=== PATIENT | male | born 1995 | race Caucasian/White ===

== ENCOUNTER 2022-05-10 22:19 | Emergency (ER) | payer OTHER ==
[2022-05-10 22:48] VITALS: BP 120/75
--- NOTE | 2022-05-11 00:41 | ED Physician Documentation ---
PD HPI BACK PAIN - Stated complaint Stated Complaint: BACK PX,NAUSEA - Chief complaint Chief Complaint: Back Pain - History obtained from History obtained from: Patient - History of Present Illness Timing - onset: How many days ago (2) Timing - details: Abrupt onset Pain level now: 8 Location: Lower, Left Quality: Pain, Spasm Associated symptoms: No: Fever, Weakness, Numbness, Incontinent of urine, Unable to urinate, Hematuria, Incontinent of stool Improves with: Rest Worsened by: Movement Similar symptoms before: Has not had sx before Recently seen: Clinic - Additional information Additional information: HPI from patient. Patient c/o left low back pain radiating to left buttock, sudden onset 2 days ago, noticed when he got out of bed and was very mild at the time. He initially denies injury, but with further thought, he does recall slipping and falling on icy/snowy surface 3 days ago but did not have any back pain associated with this (he did have mild neck pain, but this has resolved). Since onset, the pain has been constant and steadily worsening in intensity, becoming associated with muscle spasm. He was seen in clinic [place] [place] and was prescribed flexeril but he has had little improvement with this medication. Denies h/o similar symptoms. Denies weakness, numbness, loss of bowel/bladder continence. Has also been taking tylenol with the flexeril. THe pain is distinctly worse with movement involving mid/lower back, partially relieved with rest. Review of Systems Constitutional: denies: Fever GI: denies: Abdominal Pain, Nausea, Vomiting : denies: Unable to Void, Incontinent Skin: denies: Rash Musculoskeletal: reports: Back pain. denies: Neck pain, Extremity pain, Joint pain, Extremity swelling, Joint swelling Neurologic: denies: Generalized weakness, Focal weakness, Numbness PD PAST MEDICAL HISTORY - Past Medical History Past Medical History: No - Present Medications Home Medications: Ambulatory Orders Medication Instructions Recorded Confirmed Cyclobenzaprine [Flexeril] 10 mg PO TID 05/10/22 05/10/22 HYDROcod/ACETAM 5/325 [[place] 5/325] 1 - 2 tablet PO Q6H PRN #14 tablet 05/11/22 Lidocaine Patch 5% [Lidoderm Patch] 1 each TOP DAILY #10 patch 05/11/22 diazePAM [Valium] 5 mg PO TID PRN #15 tablet 05/11/22 - Allergies Allergies/Adverse Reactions: Allergies Allergy/AdvReac Type Severity Reaction Status Date / Time No Known Drug Allergies Allergy Verified 05/10/22 22:40 PD ED PE NORMAL - Abdomen Abdomen: Soft, Non tender - Back Back: No CVA TTP, No spinal TTP - Derm Derm: Normal color, Warm and dry, No rash - Neuro Neuro: No motor deficit (5/5 bilateral dorsi/plantarflexion), No sensory deficit (LTS BLE) Results - Vitals Vitals: Oxygen O2 Source Room air - Labs Labs: Laboratory Tests 05/11/22 00:37 Urine Color YELLOW Urine Clarity CLEAR Urine pH 6.0 Ur Specific [place] 1.010 Urine Protein NEGATIVE Urine Glucose (UA) NEGATIVE Urine Ketones NEGATIVE Urine Occult Blood TRACE-INTA Urine Nitrite NEGATIVE Urine Bilirubin NEGATIVE Urine Urobilinogen 0.2 (NORMAL) Ur Leukocyte Esterase NEGATIVE Ur Microscopic Review NOT INDICATED Urine Culture Comments NOT INDICATED - Rads (name of study) lumbar xrays Radiology: Prelim report reviewed, See rad report PD Medical Decision Making - ED course Complexity details: reviewed results, re-evaluated patient, considered differential, d/w patient ED course: lumbar xrays show mild lumbar facet arthropathy of mid/lower lumbar spine. Also noted is early mild degenerative changes of both hips. I reviewed these results with patient. These findings are somewhat atypical for his age, and might account for his symptoms, but further study might be helpful should his pain persist or worsen despite rest and prescribed medications for short-term symptom relief. No elements of HPI nor exam to suggest acute spinal cord impingement such as cauda equina (no bowel/bladder incontinence, saddle anesthesia). He is provided take-home vicodin and rx for both vicodin and valium, with valium to be used for skeletal muscle relaxer in place of the flexeril. return precautions reviewed. Departure - Departure Disposition: 01 Home, Self Care Clinical Impression: Back pain Condition: Good Instructions: NARCOTIC, Oral, ED Neck Back Pain General Follow-Up: MAYNOR ESTRELLA DO [Primary Care Provider] - Prescriptions: Lidocaine Patch 5% [Lidoderm Patch] 1 each TOP DAILY #10 patch HYDROcod/ACETAM 5/325 [[place] 5/325] 1 - 2 tablet PO Q6H PRN #14 tablet PRN Reason: Pain diazePAM [Valium] 5 mg PO TID PRN #15 tablet PRN Reason: Spasms Comments: As we discussed, the x-rays show a mild abnormality of your lower lumbar vertebra which is called facet arthropathy. This is not a specific finding, but could account for the discomfort you are having. You should follow-up with your primary care provider for reevaluation, further testing might be indicated if the pain persists. I have electronically submitted prescriptions to [facility] pharmacy in [place]. The prescriptions are for Vicodin (strong, narcotic pain medication), diazepam (a stronger skeletal muscle relaxant then the cyclobenzaprine that you are already taking), and Lidoderm patches. Take either the cyclobenzaprine or the diazepam; do not take both, as these both are muscle relaxants and you will likely get more side effect than increase effect if you were to take both. You can take either one of them with the Vicodin. I am prescribing a short course of narcotic pain medication for you. These are potentially dangerous and addictive medications that should be used carefully. These medications may constipate you. Take an lyzr-oic-vxunqjr stool softener (docusate) twice daily with plenty of water while taking these medications. If you go 24 hours without a bowel movement, take atyx-qxl-tccyszt miralax, per package instructions. Do not drink or drive while taking these medications. If you received narcotic or sedating medications while in the emergency department, do not drive for 24 hours. Store this medication in a safe, secure place and out of reach of children. It is a violation of federal law to give or sell this medication to another person or to use in a manner other than prescribed. The ED will not refill narcotic prescriptions, including prescriptions lost or stolen. To dispose of unwanted medications: 1. [facility] at [address] [facility] in [place] has a medication drop box. They accept prescription medications (in pill form) Friday through Friday 9:00 a.m. to 5:00 p.m. 2. The [facility] [employer] accepts prescription medications (in pill form only) for disposal year round. Call for more information. 3. Contact the [facility] for the next [facility] prescription drug collection event. , [phone], or [phone]; Discharge Date/Time: 05/11/22 02:50
[2022-05-11 01:16] LABS: BILIRUBIN,URINE NEGATIVE (NEGATIVE); GLUCOSE, URINE (UA) NEGATIVE (NEGATIVE); KETONES,URINE (UA) NEGATIVE (NEGATIVE); LEUKOCYTE ESTERASE, URINE NEGATIVE (NEGATIVE); NITRITE,URINE NEGATIVE (NEGATIVE); OCCULT BLOOD,URINE TRACE-INTA (NEGATIVE); PROTEIN,URINE NEGATIVE (NEGATIVE); UROBILINOGEN,URINE 0.2 (NORMAL) E.U./dL (NORMAL)
--- NOTE | 2022-05-11 01:30 | XRAY Report ---
PROCEDURE: Lumbar Spine 2 View INDICATIONS: left low back and midline lumbar pain TECHNIQUE: 2 views of the lumbar spine were acquired. COMPARISON: None. FINDINGS: Bones: 5 wqa-lji-fxbfguc vertebrae are present. There is normal bony alignment. No vertebral body compression fractures. No suspicious bony lesions. The disc heights are relatively well-preserved. Mild lower lumbar spine facet arthropathy can be seen. Mild degenerative change can be seen of the visualized hips. Soft tissues: Overlying bowel gas pattern is normal. No suspicious soft tissue calcifications. IMPRESSION: No acute plain film abnormality can be seen. Lower lumbar spine facet arthropathy can be seen. If it would be helpful for clinical management decision making, please consider a dedicated, schedule d lumbar MRI for further evaluation (assuming that there is no contraindication). Premature degenerative change of the hips noted. Reviewed by: Trent Salguero MD on 05/11/2022 12:28 AM [facility] Approved by: Trent Salguero MD on 05/11/2022 12:28 AM [facility] Station ID: [id number]
[2022-05-11 02:11] LABS: CLARITY,URINE CLEAR (CLEAR)
[2022-05-11] MEDS ORDERED: HYDROcod/ACET 5/325 Prepack 4 PO STA (02:38)
[2022-05-11] MEDS ORDERED: LIDOCAINE PATCH 5% TOP STA (02:38)
== END 2022-05-11 02:50 | disposition home or self-care (01) ==
LOC: ED 22:19
DX: M47.816 Spondylosis without myelopathy or radiculopathy, lumbar region (principal); M16.0 Bilateral primary osteoarthritis of hip
CPT/HCPCS: 72100; 81003; 99282; 99284; A9270; 81001; 87086

== ENCOUNTER 2022-10-03 12:23 | Emergency (ER) | payer OTHER ==
--- NOTE | 2022-10-03 12:43 | ED Physician Documentation ---
PD HPI BACK PAIN - Stated complaint Stated Complaint: BACK PX - Chief complaint Chief Complaint: Back Pain - History obtained from History obtained from: Patient - History of Present Illness Location: Lower, Right Quality: Pain, Spasm Associated symptoms: No: Fever, Weakness, Numbness, Incontinent of urine, Unable to urinate, Hematuria, Incontinent of stool, Other Improves with: Meds Worsened by: Movement, Lifting, Twisting, Palpation Contributing factors: Lifting, Twisting. No: Trauma, IVDA Similar symptoms before: Work up / diagnostics Recently seen: Clinic - Additional information Additional information: 26-year-old male with a history of left lower Back pain in the past, presents now with severe right lower back pain. Patient states that he had gotten somewhat out of shape andStarted working out again with the , and had been doing well with that, had done some weightlifting Yesterday and had no injury at that time but later bent over and had a sudden pain and pop in the right lower back. He did not think too much of it, planned on just waiting it out in avoiding particular movements however today the pain radiated into the right groin and into the right testicle. He was concerned that he may have had a hernia though he states he did not palpate anything or noticed any bulging or swelling. He has no urinary symptoms including dysuria urgency or frequency, no incontinence or retention. He has no saddle anesthesia, no lower extremity weakness or numbness, and has not had a fever. He has no history of IV drug use. He did not injure attempt any treatment at home but [facility] advised him to come here "for an MRI" because of the radiation into the groin apparently. Review of Systems Constitutional: reports: Reviewed and negative Cardiac: reports: Reviewed and negative Respiratory: reports: Reviewed and negative GI: reports: Reviewed and negative : reports: Other (right groin pain, no other sx) Skin: reports: Reviewed and negative Musculoskeletal: reports: Reviewed and negative Neurologic: reports: Reviewed and negative Psychiatric: reports: Reviewed and negative Endocrine: reports: Reviewed and negative PD PAST MEDICAL HISTORY - Present Medications Home Medications: Ambulatory Orders Medication Instructions Recorded Confirmed Cyclobenzaprine [Flexeril] 10 mg PO TID 05/10/22 05/10/22 HYDROcod/ACETAM 5/325 [[place] 5/325] 1 - 2 tablet PO Q6H PRN #14 tablet 05/11/22 Lidocaine Patch 5% [Lidoderm Patch] 1 each TOP DAILY #10 patch 05/11/22 diazePAM [Valium] 5 mg PO TID PRN #15 tablet 05/11/22 Cyclobenzaprine [Flexeril] 10 mg PO TID PRN #20 tablet 10/03/22 Ibuprofen [Motrin] 800 mg PO Q8H PRN #30 tablet 10/03/22 Oxycodone HCl/Acetaminophen 1 - 2 each PO Q6H PRN #14 tablet 10/03/22 [Percocet 5-325 mg Tablet] - Allergies Allergies/Adverse Reactions: Allergies Allergy/AdvReac Type Severity Reaction Status Date / Time No Known Drug Allergies Allergy Verified 10/03/22 12:38 PD ED PE NORMAL - Vitals Vital signs reviewed: Yes - General General: Alert and oriented X 3, No acute distress, Well developed/nourished - HEENT HEENT: Atraumatic, Pharynx benign - Cardiac Cardiac: RRR, No murmur, No gallop, No rub - Respiratory Respiratory: No respiratory distress, Clear bilaterally - Abdomen Abdomen: Normal bowel sounds, Soft, Non tender, Non distended - Male Male : Other (Normal, no swelling or obvious hernia) - Back Back: No CVA TTP, No spinal TTP, Other (right paravertebral lumbar ttp) - Derm Derm: Normal color, Warm and dry, No rash - Extremities Extremities: No deformity, No tenderness to palpate, Normal ROM s pain, No edema, No calf tenderness / cord, Other (ambulatory, 5/5 lower ext strength, no foot drop, nl sensation) - Neuro Neuro: Alert and oriented X 3 Eye Opening: Spontaneous Motor: Obeys Commands Verbal: Oriented GCS Score: 15 - Psych Psych: Normal mood, Normal affect Results - Vitals Vitals: Vital Signs - 24 hr 10/03/22 10/03/22 12:33 14:06 Temperature 36.3 C L Heart Rate 82 72 Respiratory 16 16 Rate Blood Pressure 133/88 H 140/80 H O2 Saturation 97 98 Oxygen O2 Source Room air - Rads (name of study) No standard instances Relevant Findings:: Final report received PD Medical Decision Making - ED course Complexity details: reviewed results, re-evaluated patient, considered differential, d/w patient ED course: 26-year-old male presented with right lower back pain that occurred after bending over yesterday. He is well-appearing on physical exam, has normal sensation and range of motion of the lower extremities, he has no saddle anesthesia, no fever. I have a very low suspicion for cauda equina or epidural abscess and therefore do not see indication for an emergent MRI at this point in time. I did obtain a right groin ultrasound given patient's radiating pain into the groin and report of concern for hernia. This was negative. He had no other urinary symptoms to suggest infection, And I do not suspect kidney stone as patient symptoms occurred after lifting and then bending over. Symptoms are reproducible with palpation of the right lower paravertebral muscles in this is consistent with a muscle strain. I advised patient on supportive measures and he had significant relief with administration of 30 mg of IM Toradol. We will discharge the patient home with NSAIDs, Flexeril and a short course of Percocet to use only as needed if pain not relieved by other measures. Patient states understanding and he was advised to follow-up with his PCP if no improvement in the next 2 to 3 weeks at which time they may consider an MRI and we also discussed return precautions in detail. Departure - Departure Disposition: 01 Home, Self Care Clinical Impression: Acute low back pain Qualifiers: Back pain laterality: right Sciatica presence: without sciatica Qualified Code(s): M54.50 - Low back pain, unspecified Condition: Good Instructions: ED Back Care Tips, ED Low Back Pain Injury Prescriptions: Cyclobenzaprine [Flexeril] 10 mg PO TID PRN #20 tablet PRN Reason: Spasms Ibuprofen [Motrin] 800 mg PO Q8H PRN #30 tablet PRN Reason: PAIN &/OR FEVER Oxycodone HCl/Acetaminophen [Percocet 5-325 mg Tablet] 1 - 2 each PO Q6H PRN #14 tablet PRN Reason: pain Comments: Ultrasound did not reveal any sign of hernia. You do have a likely strained lower back muscle and I recommend that you rest, avoid twisting, bending and lifting until symptoms improve but can be between 1 and 4 weeks. If there is no improvement after the next several weeks, then an outpatient MRI may be indicated. At this time however you do not have indication for an emergent MRI. Please use the pain medication as needed, starting with anti-inflammatory, the ibuprofen, and using the narcotic only if needed. I have also prescribed a muscle relaxer called Flexeril, which can cause you to be sedated so should be used carefully. I am prescribing a short course of narcotic pain medication for you. These are potentially dangerous and addictive medications that should be used carefully. These medications may constipate you. Take an jyix-jur-mrjyvox stool softener (docusate) twice daily with plenty of water while taking these medications. If you go 24 hours without a bowel movement, take nnra-avv-umznarx miralax, per package instructions. Do not drink or drive while taking these medications. If you received narcotic or sedating medications while in the emergency department, do not drive for 24 hours. Store this medication in a safe, secure place and out of reach of children. It is a violation of federal law to give or sell this medication to another person or to use in a manner other than prescribed. The ED will not refill narcotic prescriptions, including prescriptions lost or stolen. To dispose of unwanted medications: 1. [facility] at [address] [place] [address] in [place] has a medication drop box. They accept prescription medications (in pill form) Friday through Friday 9:00 a.m. to 5:00 p.m. 2. The [facility] [employer] accepts prescription medications (in pill form only) for disposal year round. Call for more information. 3. Contact the [facility] for the next [facility] sponsored prescription drug collection event. , [phone], or [phone]; Note that many narcotic pain relievers also contain Tylenol/acetaminophen. Please ensure that your total dose of acetaminophen from all sources does not exceed 3 g (3000 mg) per day. Forms: Activity restrictions Discharge Date/Time: 10/03/22 14:07
[2022-10-03] MEDS ORDERED: KETOROLAC 60 MG/2 ML VIAL IM STA (13:14)
[2022-10-03 14:07] VITALS: BP 140/80
--- NOTE | 2022-10-03 15:13 | Ultrasound Report ---
PROCEDURE: Pelvic Male INDICATIONS: concern for right inguinal hernia TECHNIQUE: Ott scale images of the right inguinal region obtained. COMPARISON: None. FINDINGS: In the area of pain, there is no visible fascial defect, solid mass or cyst. No hernia or during Vals palma maneuver. IMPRESSION: No sonographic evidence of right inguinal hernia. Reviewed by: Faby Macias MD on 10/03/2022 3:12 PM PDT Approved by: Faby Macias MD on 10/03/2022 3:12 PM PDT Station ID: [id number]
== END 2022-10-03 14:07 | disposition home or self-care (01) ==
LOC: ED 12:23
DX: M54.50 Low back pain, unspecified (principal)
CPT/HCPCS: 96372; 99283; 99284

== ENCOUNTER 2022-11-21 07:06 | Emergency (ER) | payer OTHER ==
--- NOTE | 2022-11-21 08:08 | ED Physician Documentation ---
PD HPI BACK PAIN - Stated complaint Stated Complaint: BACK PX,RT LEG NUMBNESS - Chief complaint Chief Complaint: Back Pain - History obtained from History obtained from: Patient - History of Present Illness Timing - onset: Yesterday Timing - duration: Days (1-2) Timing - details: Gradual onset, Still present Location: Lower, Right Quality: Pain, Spasm Associated symptoms: Numbness (brief intermittent to right thigh, not consistent.). No: Fever, Weakness, Incontinent of urine Worsened by: Movement, Twisting Contributing factors: Lifting, Twisting (He was helping move some furniture and objects with a friend couple of days ago. No abrupt pain or problems then. Later next morning had stiffness and pain and has increased into today.) Similar symptoms before: No diagnosis (He has had 2 or 3 discrete episodes similar over the past year. Each has lasted a few days to week and improved. No interval restriction on movement nor ongoing pain.) Review of Systems Constitutional: denies: Fever, Chills GI: denies: Abdominal Pain : denies: Incontinent Skin: denies: Rash, Lesions Musculoskeletal: reports: Back pain. denies: Neck pain Neurologic: denies: Focal weakness PD PAST MEDICAL HISTORY - Past Medical History Cardiovascular: None Respiratory: None Neuro: None Endocrine/Autoimmune: None - Present Medications Home Medications: Ambulatory Orders Medication Instructions Recorded Confirmed Cyclobenzaprine [Flexeril] 10 mg PO TID 05/10/22 05/10/22 HYDROcod/ACETAM 5/325 [[place] 5/325] 1 - 2 tablet PO Q6H PRN #14 tablet 05/11/22 Lidocaine Patch 5% [Lidoderm Patch] 1 each TOP DAILY #10 patch 05/11/22 diazePAM [Valium] 5 mg PO TID PRN #15 tablet 05/11/22 Cyclobenzaprine [Flexeril] 10 mg PO TID PRN #20 tablet 10/03/22 Ibuprofen [Motrin] 800 mg PO Q8H PRN #30 tablet 10/03/22 Oxycodone HCl/Acetaminophen 1 - 2 each PO Q6H PRN #14 tablet 10/03/22 [Percocet 5-325 mg Tablet] HYDROcod/ACETAM 5/325 [[place] 5/325] 1 ea PO Q6H PRN #15 tablet 11/21/22 dexAMETHasone [Decadron] 4 mg PO DAILY #5 tablet 11/21/22 methocarbamoL [Robaxin] 500 mg PO TID PRN #25 tablet 11/21/22 - Allergies Allergies/Adverse Reactions: Allergies Allergy/AdvReac Type Severity Reaction Status Date / Time No Known Drug Allergies Allergy Verified 10/03/22 12:38 PD ED PE NORMAL - Vitals Vital signs reviewed: Yes - General General: Alert and oriented X 3, Well developed/nourished - Abdomen Abdomen: Soft, Non tender - Back Back: No spinal TTP (Tender in the soft tissue muscular area to the right paralumbar. No trigger point tenderness.) - Derm Derm: Normal color, Warm and dry - Neuro Neuro: Alert and oriented X 3, No motor deficit, No sensory deficit Results - Vitals Vitals: Oxygen O2 Source Room air PD Medical Decision Making - ED course Complexity details: considered differential (presume myofascial back strain. Has had episodes in the past but no interval pains nor limitations. Intemittent numbness today to right thigh but not consistent. No weakness. ), d/w patient Reviewed Lab Results: considered symptoms and does not trigger red flags in the sense of needing emergent imaging. We discussed emergent versus outpatient imaging and that PCP may be wanting outpt imaging to evaluate recurrent pain episodes, but different from emergent criteria with needing information crucially today. Departure - Departure Disposition: 01 Home, Self Care Clinical Impression: Episodic low back pain Condition: Stable Record reviewed to determine appropriate education?: Yes Instructions: ED Sprain Strain Lumbar Follow-Up: [facility] [Provider Group] Prescriptions: dexAMETHasone [Decadron] 4 mg PO DAILY #5 tablet HYDROcod/ACETAM 5/325 [[place] 5/325] 1 ea PO Q6H PRN #15 tablet PRN Reason: Pain methocarbamoL [Robaxin] 500 mg PO TID PRN #25 tablet PRN Reason: Spasms Comments: Episodic back pain is relatively common, and guidelines suggest an approach to it is physical therapy and exercise/stretching between episodes and some stretching and physical modalities such as massage etc. with flareups. I would suggest your primary care give you a physical therapy referral. This is useful even if your back pain is feeling better by that time as they can work with you on preferred stretches and exercises as preventative and also during episodes. We commonly approach these with a combination of anti-inflammatories (steroidal or nonsteroidal), muscle relaxant and adding in pain medicine as needed. Limited exercise/lifting/bending in the short-term until improved. Some stretching heat and physical modalities such as massage or chiropractic are good as well. Regarding imaging, you do not have indications for an emergent MRI. If you are primary care feels outpatient imaging is appropriate given your recurrent episodes, then they would need to put in a referral for outpatient MRI. There are commonly small findings found on back MRIs even in people without back pain so at times the findings could be slightly misleading, but may be useful taken in context to look for structural abnormalities such as discs protrusions etc. I sent prescriptions for the combination of steroidal anti-inflammatory (Decadron), muscle relaxant and pain medicine to the [facility] pharmacy. Work note for a few days. Start with the Decadron steroid daily for the next 5 days and then revert to ibuprofen NSAID 2 to 3 tablets 2-3 times daily (400 to 600 mg). Add methocarbamol/Robaxin muscle relaxant for stiffness and spasms. This should not be sedating much. To that add Tylenol every 4-6 hours if needed for pain or the hydrocodone if needed for worse pain. I am prescribing a short course of narcotic pain medication for you. These are potentially dangerous and addictive medications that should be used carefully. These medications may constipate you. Take an lbuk-qau-dfuyuwx stool softener such as docusate twice daily with plenty of water while taking these medications. If you go 24 hours without a bowel movement, take wjtz-vhh-cmxxmrf MiraLAX, per package instructions. Do not drink or drive while taking these medications. If you received narcotic or sedating medications while in the emergency department do not drive for 24 hours. Store this medication in a safe, secure place and out of reach of children. It is a violation of federal law to give or sell this medication to another person or to use in a manner other than prescribed. The ED will not refill narcotic prescriptions, including prescriptions lost or stolen. You can dispose of unwanted medications at the [facility]'s office or at several pharmacies such as [facility]. Forms: Activity restrictions Discharge Date/Time: 11/21/22 09:01
[2022-11-21] MEDS ORDERED: HYDROcod/ACETAM 5/325 MG TABLET PO STA (08:43)
[2022-11-21 09:07] VITALS: BP 120/85
== END 2022-11-21 09:01 | disposition home or self-care (01) ==
LOC: ED 07:06
DX: M54.50 Low back pain, unspecified (principal)
CPT/HCPCS: 99282; 99283; A9270